=== PATIENT | male | born 1965 | race Caucasian/White ===

== ENCOUNTER 2020-08-30 01:10 | Emergency (ER) | payer BC, SELFPAY ==
[2020-08-30] MEDS ORDERED: MORPHINE SULFATE INJ 10 MG/ML VIAL ONE (01:17)
[2020-08-30] MEDS ORDERED: ONDANSETRON INJ 4 MG/2 ML VIAL IV ONE (01:18)
[2020-08-30] MEDS ORDERED: MORPHINE SULFATE INJ 10 MG/ML VIAL IV ONE (01:18)
--- NOTE | 2020-08-30 01:21 | ED.PDOC ---
History of Present Illness - General Time Seen by Provider: 08/30/20 01:16 Source: patient, RN notes reviewed, Vital Signs reviewed, EMS notes reviewed Additional Information: 54-year-old male patient, presents to the ER because of crushing chest pain, that began about an hour prior to presentation to the ER, patient has been quarantine at home because his was positive for Covid, patient does have a history of hypertension but is not compliant with his medication admit social drinker denies any drugs denies any cigarettes. Patient denies any fever but stated that once he started having the chest pain, he was having some trouble breathing, per EMS his pulse was 94%, he received aspirin and nitro by EMS with some improvement of symptoms no Previous history of coronary artery disease or previous heart attacks - History of Present Illness Timing/Duration: 1 hour Severity/Quality: severe Location: central Chest Pain Radiation: no radiation Prior Chest Pain/Cardiac Workup: no prior chest pain Improving Factors: medication Worsening Factors: nothing Nitro Today/Relief: 0.4 mg x 3 Aspirin Treatment Today: 325 mg x 1, provided by EMS Associated Symptoms: shortness of breath Allergies/Adverse Reactions: Allergies NO KNOWN ALLERGY Allergy (Unverified 01/16/14 09:05) Review of Systems - Review of Systems Constitutional: States: no symptoms reported EENTM: States: no symptoms reported Respiratory: States: short of breath Cardiology: States: chest pain Gastrointestinal/Abdominal: States: no symptoms reported Genitourinary: States: no symptoms reported Musculoskeletal: States: no symptoms reported Skin: States: no symptoms reported Neurological: States: no symptoms reported Endocrine: States: no symptoms reported Hematologic/Lymphatic: States: no symptoms reported Family Medical History - Family History Mother Family History: No Known Physical Exam - Physical Exam General Appearance: Obvious distress, Ill Appearing, Well Developed, Well Groomed Eyes, Ears, Nose, Throat Exam: PERRL/EOMI, normal ENT inspection Neck: non-tender, full range of motion, supple, normal inspection Respiratory: chest non-tender, lungs clear, normal breath sounds, no respiratory distress, no accessory muscle use Cardiovascular/Chest: normal peripheral pulses, regular rate, rhythm, no edema, no gallop, no JVD, no murmur Peripheral Pulses: radial,right: 2+, radial,left: 2+ Gastrointestinal/Abdominal: normal bowel sounds, non tender, soft, no organomegaly, no pulsatile mass Extremity: normal range of motion, non-tender, normal inspection, no pedal edema, no calf tenderness 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 Patient has not had any heart problems in the past, I ordered a Covid swab that was negative, EKG did not show ischemic changes 84, and no ST elevation and no ST depression t, patient BNP was negative because pat ient described the pain as excruciating pain that started abruptly and he did show evidence of elevated blood pressure which was aortic dissection CTA chest and abdomen did not show any pneumonia did not show any dissection I did not show any PE, patient blood pressure improved with morphine and labetalol and patient is no longer having any chest pain. I discussed all these findings with the patient and the plan will be is a second set of troponins remain negative then we will discharge him home given that his heart score is 3 will have him follow up cardiology as an outpatient, instructions were given to return to the ER immediately if chest pressure, nausea, vomiting, shortness of breath tingling sensation in the chest with radiation to her left arm right arm neck back or jaw sensation of fainting excessive sweating crushing chest pain reaction to the back increased work of breathing difficulty breathing breathing heart beating fast shortness of breath with minimal exertion or any other concern Departure - Departure Clinical Impression: Chest pain Disposition: Discharge to Home or Self Care Condition: Fair Instructions: Chest Pain (DC) Referrals: Apolinar Pandya MD [Active Staff] - 1-2 Weeks KINZA RASMUSSEN MD [Consulting Staff] - 1-2 Weeks KIKE TOWNSEND [Referring] - 1-2 Weeks Additional Instructions: return to the ER immediately if chest pressure, nausea, vomiting, shortness of breath tingling sensation in the chest with radiation to her left arm right arm neck back or jaw sensation of fainting excessive sweating crushing chest pain reaction to the back increased work of breathing difficulty breathing breathing heart beating fast shortness of breath with minimal exertion or any other concern 08/30/20 02:20
[2020-08-30] MEDS ORDERED: LABETALOL INJ 5 MG/ML VIAL IV ONE (01:22)
--- NOTE | 2020-08-30 01:45 | RAD ---
EXAM DESCRIPTION: Chest,1 View CLINICAL HISTORY: chest pain COMPARISON: Chest x-ray 03/12/2008. TECHNIQUE: Single view of the chest. FINDINGS: Lung volumes adequate. Cardiac silhouette is unchanged. No focal consolidation, pneumothorax, pleural effusion. IMPRESSION: No acute chest findings. Electronically signed by: Ted Murphy MD 08/30/2020 1:44 AM EQUALIZER OPERATOR
[2020-08-30 02:00] VITALS: TEMP 97.5
--- NOTE | 2020-08-30 02:08 | CT ---
EXAM DESCRIPTION: CTA Chest 08/30/2020 2:04 AM MACHINE HEEL SEAT LASTER CLINICAL HISTORY: 54 years, Male, dissection COMPARISON: None PROCEDURE: Multiple transaxial tomograms of the chest were obtained from the lung apices through the lung bases utilizing 2 mm slice thickness at 2 mm interval reconstruction after the administration of large bolus of IV contrast complete opacification of the thoracic aorta. Subsequent maximum intensity projection images were generated in the coronal and sagittal plane for review. An individualized dose optimization technique, Automated Exposure Control, was utilized for the performed procedure. FINDINGS: The lungs parenchyma demonstrate to be clear. No masses nodules and or consolidations are identified. The trachea mainstem bronchus demonstrate to be normal. There is no significant pericardial or pleural effusions. The thoracic aorta demonstrate to be within normal limits. There is no evidence for thoracic aortic dissection. There is no evidence for aneurysm. There is normal takeoff of the great vessels with normal branching pattern. No focal areas of significant stenosis. The heart is normal in size. No evidence for right ventricular strain. There is no significant mediastinal and/or hilar lymphadenopathy. The axillary regions demonstrate to be clear. The central arteries demonstrate no evidence for significant abnormalities. No major filling defects identified. The bone windows demonstrate to be within normal limits. Evaluation of the abdomen will be given in a separate report IMPRESSION: NO EVIDENCE FOR PULMONARY EMBOLUS AND/OR THORACIC AORTIC THORACIC DISSECTION. OTHERWISE UNREMARKABLE CT SCAN OF THE CHEST WITH CONTRAST. Electronically signed by: Jonathan Hernandez MD 08/30/2020 2:07 AM MACHINE HEEL SEAT LASTER
--- NOTE | 2020-08-30 02:13 | CT ---
EXAM DESCRIPTION: Abdomen/Pelvis w/Contrast 08/30/2020 2:07 AM DESKTOP SUPPORT MANAGER CLINICAL HISTORY: 54 years, Male, disssection abdominal pain. COMPARISON: None PROCEDURE: Contrast-enhanced images of the abdomen and pelvis were performed utilizing 2 mm slice thickness at 2 mm interval reconstruction from the lung bases to the ischial tuberosities after the administration of 100 IV contrast. The dosing was not provided for interpretation. In addition multiplanar reformats in the coronal and sagittal plane were obtained and reviewed. An individualized dose optimization technique, Automated Exposure Control, was utilized for the performed procedure. FINDINGS: Evaluation of the chest will be given in separate report. The liver demonstrate slight decreased attenuation perhaps ingesting mild fatty infiltration, gallbladder, pancreas, spleen and adrenal glands demonstrate to be unremarkable, no focal lesions are noted. The kidneys demonstrate normal uptake of contrast media. No hydronephrosis and/or stones were identified. There is a lower pole left renal cyst measuring approximately 1.3 cm on image 56 Grossly the unopacified stomach demonstrate to be distended with no gross abnormalities. Otherwise the stomach, small bowel and large bowel demonstrate to be within normal limits. Fecal residue and underdistention within the large bowel limits the evaluation. There is no evidence for bowel dilatation and/or free air. The appendix is normal. The urinary bladder demonstrate to be unremarkable. The prostate gland is normal. The aorta demonstrate minimal atheromatous plaque formation at the aortic bifurcation. There is no evidence for aneurysm/or significant dissection. There is no retroperitoneal lymphadenopathy. There is no evidence for ascites and/or significant abnormal fluid collections. The rest of the soft tissue and bony structures are within normal limits. IMPRESSION: QUESTIONABLE MILD FATTY FILTRATION OF THE LIVER. OTHERWISE UNREMARKABLE CT SCAN OF THE ABDOMEN AND PELVIS WITH CONTRAST. NO EVIDENCE FOR ACUTE INTRA-ABDOMINAL PROCESS. Electronically signed by: Jonathan Hernandez MD 08/30/2020 2:11 AM DESKTOP SUPPORT MANAGER
[2020-08-30 04:05] VITALS: BP 145/93; O2SAT 96
== END 2020-08-30 04:20 | disposition home or self-care (01) ==
LOC: ER 01:10
DX: R07.9 Chest pain, unspecified (principal); R06.02 Shortness of breath; I10 Essential (primary) hypertension; Z20.828 Contact with and (suspected) exposure to other viral communicable diseases; Z79.899 Other long term (current) drug therapy; Z91.14 Patient's other noncompliance with medication regimen
CPT/HCPCS: 36415; 71045; 71275; 74177; 80053; 82550; 83615; 83735; 83880; 84484; 85025; 85379; 85730; 86140; 87635; 93005; J2270; J2405

== ENCOUNTER 2020-11-17 17:02 | Emergency (ER) | payer SELFPAY ==
[2020-11-17] MEDS ORDERED: SODIUM CHLORIDE 0.9% (FLUSH) 10 ML SYG IV PRN (17:12)
[2020-11-17] MEDS ORDERED: SODIUM CHLORIDE 0.9% 1000ML 1,000 ML IVS ONE (17:12)
--- NOTE | 2020-11-17 17:12 | ED.PDOC ---
History of Present Illness - General Chief Complaint: Respiratory Problem Time Seen by Provider: 11/17/20 17:12 Source: patient, EMS, jail records Additional Information: Patient resides in a jail caring for ventilator patients. History of quadriplegia. Patient is under treatment for sepsis of undetermined organism. Patient's spinal injury occurred about 1 month ago. Patient transferred to the jail 4 days ago. - History of Present Illness Initial Comments: Nurse at jail found the patient cyanotic with a heart rate in the 40s and SaO2 in the 40s. He was on a ventilator at the time. She took the patient off the ventilator and bagged manually with improvement in heart rate and oxygen saturation. There was no loss of pulse and CPR was not started. Patient states that he has had a mild headache since yesterday. Patient is unable to speak but can answer questions by nodding his head. He denies fever, upper respiratory symptoms, cough, abdominal pain, vomiting. Timing/Duration: 1 hour Severity: severe Improving Factors: nothing Worsening Factors: nothing Associated Symptoms: other - Bradycardia and hypoxemia Allergies/Adverse Reactions: Allergies NO KNOWN ALLERGY Allergy (Verified 11/17/20 17:23) Review of Systems - Review of Systems Constitutional: States: no symptoms reported. Denies: fever EENTM: States: no symptoms reported, other - Redness of right eye, onset yesterday. Not painful. Respiratory: States: see HPI. Denies: cough, short of breath Cardiology: States: see HPI, other - Bradycardia Gastrointestinal/Abdominal: States: no symptoms reported. Denies: diarrhea, vomiting Genitourinary: States: no symptoms reported Skin: States: other - Bedsore reported on back Neurological: States: headache - Mild, onset yesterday, weakness - Quadriplegic Endocrine: States: other - History of diabetes Hematologic/Lymphatic: States: no symptoms reported Past Medical History (General) - Patient Medical History Hx Seizures: No Hx Stroke: No Hx Dementia: No Hx Asthma: No Hx of COPD: No Hx Cardiac Disorders: No Hx Congestive Heart Failure: No Hx Pacemaker: No Hx Hypertension: No Hx Thyroid Disease: No Hx Diabetes: No Hx Gastroesophageal Reflux: Yes Hx Renal Disease: No Hx Cancer: No Hx of HIV: No Hx Hepatitis C: No Hx MRSA: No - Vaccination History Hx Tetanus, Diphtheria Vaccination: No Hx Influenza Vaccination: No Hx Pneumococcal Vaccination: No - Social History Hx Tobacco Use: No Hx Chewing Tobacco Use: No Hx Alcohol Use: Yes - occasional Hx Substance Use: No Hx Substance Use Treatment: No Hx Depression: No Hx Physical Abuse: No Hx Emotional Abuse: No Hx Suspected Abuse: No Family Medical History - Family History Mother Family History: No Known Physical Exam - Physical Exam General Appearance: Alert, Comfortable, Other - Tracheostomy in place with ventilator Eye Exam: right other - Large subconjunctival hemorrhage lateral right eye. Extraocular motions are intact., bilateral conjunctivae pale - Minimal Ears, Nose, Throat: hearing grossly normal, normal ENT inspection, normal pharynx, other - Mucous membranes moist Neck: non-tender, other - Tracheostomy in place with surrounding erythema and purulent drainage. Respiratory: normal breath sounds Cardiovascular/Chest: regular rate, rhythm Gastrointestinal/Abdominal: normal bowel sounds, non tender, soft Rectal Exam: heme positive stool, other - Brown stool without melena or hematochezia. Extremity: other - No swelling or erythema noted Neurologic: motor weakness - Quadriplegic Skin Exam: warm/dry, mottled, other - On the left posterior buttock is a 5 to 6 cm bedsore which is deep into subcutaneous tissue. There is no surrounding erythema or purulent drainage., pallor - Mild Lymphatic: no adenopathy Progress - Progress Progress: 11/17/20 17:30 Patient specifically stated his headache was mild and declined to have a CAT scan performed. 11/17/20 17:38 Normal saline 1 L infusion 11/17/20 18:20 Cefazolin 2 g IV ordered. Review of old records at this facility shows hemoglobin on August 30, 2020 was 14. High D-dimer noted. CTA ordered. 11/17/20 19:03 Review of old records November 13, 2020 from [facility] in [place] showed hemoglobin 7.5 at that time. 11/17/20 20:41 CTA results noted. Zosyn 3.375 g ordered IV. Transfer process started. 11/17/20 20:43 Medical decision makin-year-old male quadriplegic patient on the ventilator brought in from senior care facility after brief episode of cyanosis and hypoxemia. CTA does not show pulmonary emboli but does show bilateral infiltrates consistent with pneumonia. Covid test is negative. Patient has a normal lactate, has been fully alert, and has had normal vital signs in the emergency department. He does not appear to be septic. Patient has a hemoglobin of 7 which is down from 7.5 four days ago and 14.0 three months ago. Stool is not melanotic but is occult positive for blood. Patient does not had any abdominal pain or vomiting. Patient also has a cutaneous infection around the tracheostomy site. He also has a bedsore in his left buttock. Due to significant anemia which appears to be relatively recent finding patient needs gastroenterology evaluation. Care of ventilator patients and gastroenterology services are not available at this facility. Transfer is sought to a facility offering a higher level care in the services.. 11/17/20 21:[address] Erickson, attending physician emergency department [facility] in [place]: Will accept the patient in transfer. 11/17/20 21:24 I discussed the patient's condition and disposition with his , Sonwilma Maria. She informed me that the patient was seen by supervisor packing at [facility] 6 days ago. - Results/Orders Results/Orders: Electrocardiogram: Paced rhythm, 60/min, no acute STT changes. EXAM DESCRIPTION: Chest,1 View 11/17/2020 5:44 PM CARDIOVASCULAR INVASIVE SPECIALIST CLINICAL HISTORY: 55 years, Male, Hypoxemia, sepsis COMPARISON: 08/30/2020 FINDINGS: Single view of the chest was obtained portable. Prior films were compared. There has been interval placement of a tracheostomy tube in good position. There has been interval placement of a dual-lead pacemaker in good position. Lung volume is decreased. Blunting of the lateral left CP angle and medial right CP angle suggest small bilateral pleural effusions with compressive atelectatic changes, greater left than right. Mild cardiomegaly. Thoracic aorta is unremarkable The rest of the soft tissue and bony structures demonstrate to be unremarkable. IMPRESSION: TRACHEOSTOMY TUBE AND DUAL-LEAD PACEMAKER IN PLACE. DECREASED LUNG VOLUME. SMALL BILATERAL PLEURAL EFFUSIONS WITH MINIMAL COMPRESSIVE ATELECTATIC CHANGES IN/OR INFILTRATES (LEFT GREATER THAN RIGHT). MILD CARDIOMEGALY Rapid nasopharyngeal swab test for COVID-19 negative. EXAM: CTA chest with contrast CLINICAL INDICATION: Abnormal D-dimer test, hypoxia COMPARISON: 08/30/2020. TECHNIQUE: CTA of the chest was performed using contiguous axial 2.5mm postcontrast sections through the chest including IV contrast with 3-D reconstructions. This exam was performed according to our departmental dose-optimization program, which includes automated exposure control, adjustment of the mA and/or kV according to patient size and/or use of iterative reconstruction technique. FINDINGS: This exam is limited and suboptimal for evaluation of pulmonary embolism due to poor contrast opacification of the pulmonary arteries. There is no large or obvious PE in the main, right, or left pulmonary arteries. Smaller vessels are not well evaluated. There is no evidence of aortic dissection. Small bilateral pleural effusions are noted. There is a small amount of ascites in the upper abdomen. The upper abdominal structures are otherwise unremarkable. Extensive consolidation with air bronchograms is seen in the bilateral lower lobes and the posterior upper lobes system with pneumonia. There is no pneumothorax. IMPRESSION: 1. Limited study for PE evaluation due to poor opacification of the pulmonary arteries. No large or obvious PE. Repeat study may be helpful. 2. Extensive consolidation/infiltrate in both lungs consistent with pneumonia. Small bilateral pleural effusions. 3. Small amount of ascites. Electronically signed by: Jesus Cai MD 11/17/2020 8:17 PM CARDIOVASCULAR INVASIVE SPECIALIST 11/17/20 17:12 Sodium Chloride 0.9% (Flush) [Saline Flush Syringe] 10 ml IV PRN PRN 11/17/20 17:13 EKG Stat Pulse Ox Stat Pulse Oximetry Assessment DAILY 11/17/20 17:15 SPUTUM CULTURE Stat WOUND CULTURE Stat 11/17/20 17:25 BLOOD CULTURE Stat 11/17/20 20:35 Piperacillin/Tazobactam [Zosyn] 3.375 gm Sodium Chloride 0.9% 100Ml [NS (NACL 0.9%) 100ml] 100 ml IVPB ONCE 11/17/20 20:43 URINE CULTURE W/COLONY COUNT Stat Laboratory Results - last 24 hr 11/17/20 11/17/20 11/17/20 17:25 17:25 17:25 WBC 2.3 L* RBC 2.30 L Hgb 7.0 L* Hct 20.7 L MCV 89.9 MCH 30.2 MCHC 33.6 RDW 17.6 H Plt Count 118 L MPV 8.9 Absolute Neuts (auto) Not Reportable Absolute Lymphs (auto) Not Reportable Absolute Monos (auto) Not Reportable Absolute Eos (auto) Not Reportable Neutrophils % Not Reportable Neutrophils % (Manual) 49.0 Lymphocytes % Not Reportable Lymphocytes % (Manual) 42.0 Monocytes % Not Reportable Monocytes % (Manual) 8.0 Eosinophils % Not Reportable Basophils % Not Reportable Eosinophils 1.0 Platelet Estimate Decreased PT 11.0 H INR 1.11 PTT (SP) 21.5 L D-Dimer, Quantitative 4100.0 H* pCO2 pO2 HCO3 ABG pH ABG O2 Saturation ABG Base Excess ABG Deoxyhemoglobin Oxyhemoglobin % Carboxyhemoglobin % Methemoglobin % Sat Calc Total Hemoglobin Sodium 137 Potassium 3.8 Chloride 105 Carbon Dioxide 24 Anion Gap 11.8 L BUN 20 H Creatinine 0.43 L BUN/Creatinine Ratio 46.5 H Random Glucose 140 H Serum Osmolality 278.7 Lactic Acid Calcium 7.4 L Total Bilirubin 0.5 AST 33 ALT 11 Alkaline Phosphatase 68 Creatine Kinase 59 CK-MB (CK-2) 5.8 H* CK-MB (CK-2) % Not Reportable Troponin I 0.05 B-Natriuretic Peptide Serum Total Protein 4.9 L Albumin 2.0 L Globulin 2.9 Albumin/Globulin Ratio 0.7 L Urine Color Urine Appearance Urine pH Ur Specific [place] Urine Protein Urine Glucose (UA) Urine Ketones Urine Blood Urine Nitrite Urine Bilirubin Urine Urobilinogen Ur Leukocyte Esterase Urine RBC Urine WBC Ur Epithelial Cells Amorphous Sediment Urine Bacteria Stool Occult Blood Patient ABO/Rh Antibody Screen 11/17/20 11/17/20 11/17/20 17:25 18:06 18:19 WBC RBC Hgb Hct MCV MCH MCHC RDW Plt Count MPV Absolute Neuts (auto) Absolute Lymphs (auto) Absolute Monos (auto) Absolute Eos (auto) Neutrophils % Neutrophils % (Manual) Lymphocytes % Lymphocytes % (Manual) Monocytes % Monocytes % (Manual) Eosinophils % Basophils % Eosinophils Platelet Estimate PT INR PTT (SP) D-Dimer, Quantitative pCO2 33 L pO2 78 L HCO3 26.8 ABG pH 7.516 H ABG O2 Saturation 97.5 ABG Base Excess 3.8 ABG Deoxyhemoglobin 2.5 Oxyhemoglobin % 95.7 Carboxyhemoglobin % 1.2 Methemoglobin % Sat 0.6 Calc Total Hemoglobin 8.1 L Sodium Potassium Chloride Carbon Dioxide Anion Gap BUN Creatinine BUN/Creatinine Ratio Random Glucose Serum Osmolality Lactic Acid 1.9 Calcium Total Bilirubin AST ALT Alkaline Phosphatase Creatine Kinase CK-MB (CK-2) CK-MB (CK-2) % Troponin I B-Natriuretic Peptide Serum Total Protein Albumin Globulin Albumin/Globulin Ratio Urine Color Urine Appearance Urine pH Ur Specific [place] Urine Protein Urine Glucose (UA) Urine Ketones Urine Blood Urine Nitrite Urine Bilirubin Urine Urobilinogen Ur Leukocyte Esterase Urine RBC Urine WBC Ur Epithelial Cells Amorphous Sediment Urine Bacteria Stool Occult Blood Positive H Patient ABO/Rh Antibody Screen 11/17/20 11/17/20 11/17/20 19:04 19:05 19:12 WBC RBC Hgb Hct MCV MCH MCHC RDW Plt Count MPV Absolute Neuts (auto) Absolute Lymphs (auto) Absolute Monos (auto) Absolute Eos (auto) Neutrophils % Neutrophils % (Manual) Lymphocytes % Lymphocytes % (Manual) Monocytes % Monocytes % (Manual) Eosinophils % Basophils % Eosinophils Platelet Estimate PT INR PTT (SP) D-Dimer, Quantitative pCO2 pO2 HCO3 ABG pH ABG O2 Saturation ABG Base Excess ABG Deoxyhemoglobin Oxyhemoglobin % Carboxyhemoglobin % Methemoglobin % Sat Calc Total Hemoglobin Sodium Potassium Chloride Carbon Dioxide Anion Gap BUN Creatinine BUN/Creatinine Ratio Random Glucose Serum Osmolality Lactic Acid 1.9 Calcium Total Bilirubin AST ALT Alkaline Phosphatase Creatine Kinase CK-MB (CK-2) CK-MB (CK-2) % Troponin I B-Natriuretic Peptide 149.0 H Serum Total Protein Albumin Globulin Albumin/Globulin Ratio Urine Color Urine Appearance Urine pH Ur Specific [place] Urine Protein Urine Glucose (UA) Urine Ketones Urine Blood Urine Nitrite Urine Bilirubin Urine Urobilinogen Ur Leukocyte Esterase Urine RBC Urine WBC Ur Epithelial Cells Amorphous Sediment Urine Bacteria Stool Occult Blood Patient ABO/Rh O POSITIVE Antibody Screen Negative 11/17/20 19:16 WBC RBC Hgb Hct MCV MCH MCHC RDW Plt Count MPV Absolute Neuts (auto) Absolute Lymphs (auto) Absolute Monos (auto) Absolute Eos (auto) Neutrophils % Neutrophils % (Manual) Lymphocytes % Lymphocytes % (Manual) Monocytes % Monocytes % (Manual) Eosinophils % Basophils % Eosinophils Platelet Estimate PT INR PTT (SP) D-Dimer, Quantitative pCO2 pO2 HCO3 ABG pH ABG O2 Saturation ABG Base Excess ABG Deoxyhemoglobin Oxyhemoglobin % Carboxyhemoglobin % Methemoglobin % Sat Calc Total Hemoglobin Sodium Potassium Chloride Carbon Dioxide Anion Gap BUN Creatinine BUN/Creatinine Ratio Random Glucose Serum Osmolality Lactic Acid Calcium Total Bilirubin AST ALT Alkaline Phosphatase Creatine Kinase CK-MB (CK-2) CK-MB (CK-2) % Troponin I B-Natriuretic Peptide Serum Total Protein Albumin Globulin Albumin/Globulin Ratio Urine Color Yellow Urine Appearance Clear Urine pH 5.5 Ur Specific [place] 1.015 Urine Protein 100 H Urine Glucose (UA) 100 H Urine Ketones Negative Urine Blood Large H Urine Nitrite Negative Urine Bilirubin Negative Urine Urobilinogen 1.0 Ur Leukocyte Esterase Negative Urine RBC 5-10 H Urine WBC 0 Ur Epithelial Cells 0 Amorphous Sediment 2+ Urine Bacteria 0 Stool Occult Blood Patient ABO/Rh Antibody Screen Vital Signs - 24 hr 11/17/20 11/17/20 11/17/20 17:03 17:05 17:09 Temperature 98 F Pulse Rate [ 60 60 Pulse ox] Respiratory 16 16 Rate Respiratory 16 Rate [Pressure Control Data] Blood Pressure 102/57 [R arm] O2 Sat by Pulse 97 96 Oximetry 11/17/20 11/17/20 11/17/20 18:41 19:02 20:00 Temperature Pulse Rate [ 64 60 Pulse ox] Respiratory 20 16 Rate Respiratory 16 Rate [Pressure Control Data] Blood Pressure 127/70 104/60 [R arm] O2 Sat by Pulse 99 94 L Oximetry 11/17/20 20:10 Temperature Pulse Rate [ Pulse ox] Respiratory Rate Respiratory 16 Rate [Pressure Control Data] Blood Pressure [R arm] O2 Sat by Pulse Oximetry Departure - Departure Clinical Impression: Hypoxemia, resolved, Pneumonia, bilateral, Gastrointestinal bleeding, Anemia secondary to blood loss, Cutaneous infection of tracheostomy site, Quadriplegia Disposition: Transfer to Hospital Departure Forms: ED Discharge - Pt. Copy, Patient Portal Self Enrollment Referrals: ASHLEY ORTEGA [Primary Care Provider] - 1-2 Weeks Transfer to Outside Facility - Transfer Information Decision to Transfer Date: 11/17/20 Decision to Transfer Time: 20:40 Reason for Transfer: specialized care not available Accepting Facility: [facility]
--- NOTE | 2020-11-17 17:47 | RAD ---
EXAM DESCRIPTION: Chest,1 View 11/17/2020 5:44 PM CREDIT INTERN CLINICAL HISTORY: 55 years, Male, Hypoxemia, sepsis COMPARISON: 08/30/2020 FINDINGS: Single view of the chest was obtained portable. Prior films were compared. There has been interval placement of a tracheostomy tube in good position. There has been interval placement of a dual-lead pacemaker in good position. Lung volume is decreased. Blunting of the lateral left CP angle and medial right CP angle suggest small bilateral pleural effusions with compressive atelectatic changes, greater left than right. Mild cardiomegaly. Thoracic aorta is unremarkable The rest of the soft tissue and bony structures demonstrate to be unremarkable. IMPRESSION: TRACHEOSTOMY TUBE AND DUAL-LEAD PACEMAKER IN PLACE. DECREASED LUNG VOLUME. SMALL BILATERAL PLEURAL EFFUSIONS WITH MINIMAL COMPRESSIVE ATELECTATIC CHANGES IN/OR INFILTRATES (LEFT GREATER THAN RIGHT). MILD CARDIOMEGALY Electronically signed by: Jonathan Hernandez MD 11/17/2020 5:45 PM CREDIT INTERN
[2020-11-17] MEDS ORDERED: ceFAZolin SODIUM 2 GM in SODIUM CHLORIDE 0.9% 100ML 100 ML IVPB ONE (18:14)
--- NOTE | 2020-11-17 20:18 | CT ---
EXAM: CTA chest with contrast CLINICAL INDICATION: Abnormal D-dimer test, hypoxia COMPARISON: 08/30/2020. TECHNIQUE: CTA of the chest was performed using contiguous axial 2.5mm postcontrast sections through the chest including IV contrast with 3-D reconstructions. This exam was performed according to our departmental dose-optimization program, which includes automated exposure control, adjustment of the mA and/or kV according to patient size and/or use of iterative reconstruction technique. FINDINGS: This exam is limited and suboptimal for evaluation of pulmonary embolism due to poor contrast opacification of the pulmonary arteries. There is no large or obvious PE in the main, right, or left pulmonary arteries. Smaller vessels are not well evaluated. There is no evidence of aortic dissection. Small bilateral pleural effusions are noted. There is a small amount of ascites in the upper abdomen. The upper abdominal structures are otherwise unremarkable. Extensive consolidation with air bronchograms is seen in the bilateral lower lobes and the posterior upper lobes system with pneumonia. There is no pneumothorax. IMPRESSION: 1. Limited study for PE evaluation due to poor opacification of the pulmonary arteries. No large or obvious PE. Repeat study may be helpful. 2. Extensive consolidation/infiltrate in both lungs consistent with pneumonia. Small bilateral pleural effusions. 3. Small amount of ascites. Electronically signed by: Jesus Cai MD 11/17/2020 8:17 PM OCCUPANCY SPECIALIST
[2020-11-17] MEDS ORDERED: PIPERACILLIN/TAZOBACTAM 3.375 GM in SODIUM CHLORIDE 0.9% 100ML 100 ML IVPB ONE (20:35)
[2020-11-17 22:31] VITALS: BP 128/70; TEMP 97.2; O2SAT 100
== END 2020-11-17 22:47 | disposition short-term general hospital (02) ==
LOC: ER 17:02
DX: J18.9 Pneumonia, unspecified organism (principal); R09.02 Hypoxemia; J95.02 Infection of tracheostomy stoma; L08.9 Local infection of the skin and subcutaneous tissue, unspecified; K92.2 Gastrointestinal hemorrhage, unspecified; D50.0 Iron deficiency anemia secondary to blood loss (chronic); G82.50 Quadriplegia, unspecified; R51.9 Headache, unspecified; H11.31 Conjunctival hemorrhage, right eye; L89.329 Pressure ulcer of left buttock, unspecified stage; R00.1 Bradycardia, unspecified; E11.9 Type 2 diabetes mellitus without complications; Z20.822 Contact with and (suspected) exposure to COVID-19; Z99.11 Dependence on respirator [ventilator] status
CPT/HCPCS: 36415; 36600; 71045; 71275; 80053; 81001; 82270; 82550; 82553; 82803; 82805; 83605; 83880; 84484; 85025; 85379; 85610; 85730; 86850; 86900; 86901; 87040; 87070; 87086; 87635; 93005; 94002; 94760; J0690; J2543; J7050

== ENCOUNTER 2020-12-01 08:26 | Emergency (ER) | payer SELFPAY ==
[2020-12-01] MEDS ORDERED: SODIUM CHLORIDE 0.9% 1000ML 1,000 ML IVS ONE (08:53)
[2020-12-01] MEDS ORDERED: SODIUM CHLORIDE 0.9% (FLUSH) 10 ML SYG IV PRN ×2 (08:53→11:22)
--- NOTE | 2020-12-01 09:13 | ED.PDOC ---
History of Present Illness - General Chief Complaint: Blood Pressure Problem Stated Complaint: Low BP Time Seen by Provider: 12/01/20 08:40 Source: patient, RN notes reviewed, Vital Signs reviewed Exam Limitations: other - Patient is a vented patient and therefore it is difficult to obtain a clear history. - History of Present Illness Initial Comments: Patient is a 55-year-old quadriplegic white male who recently became quadriplegic. He arrives to the ED today is stating that he is not feeling himself. Patient states that he just feels sick. He denies any pain. Though l ater he tells us he has a mild headache. On arrival patient's blood pressure was 100/47. Patient cannot tell me how long he has not been feeling well. He cannot tell me anything that makes him feel better or worse. Timing/Duration: unsure, constant Severity: moderate Improving Factors: nothing Worsening Factors: nothing Associated Symptoms: denies symptoms Allergies/Adverse Reactions: Allergies NO KNOWN ALLERGY Allergy (Verified 12/01/20 08:52) Home Medications: Ambulatory Orders Acetaminophen [Acetaminophen ER] 650 mg PEG Q6H PRN 12/01/20 Acetylcystein 20 % [Mucomyst] 2 ml INH BID 12/01/20 Albuterol Sulfate 2.5 mg INH BID 12/01/20 Apixaban [Eliquis] 5 mg PO BID #30 tab 12/01/20 Artificial Saliva [Biotene Moisturizing Mout] 2 spr MT BID PRN 12/01/20 Ascorbic Acid [Vitamin C 500 mg] 1 tab PEG DAILY 12/01/20 Cefazolin Sodium 2 gm IV Q8H 12/01/20 Cefdinir 300 mg PO BID #120 ml 12/01/20 Cholecalciferol [Vitamin D3] 200 unit PEG DAILY 12/01/20 Clonazepam [Clonazepam Odt] 0.25 mg PEG BID PRN 12/01/20 Escitalopram [Lexapro] 10 mg PEG DAILY 12/01/20 Glucagon (Rdna) [Glucagon Emergency Kit Fo] 1 mg IJ ONCE PRN 12/01/20 Human Insulin Aspart [Novolog] See Protocol SUBCU Q6H PRN 12/01/20 Hydrochlorothiazide 25 mg PEG DAILY 12/01/20 Ibuprofen [Motrin] 200 mg PEG Q8H PRN 12/01/20 Lisinopril 20 mg PEG DAILY 12/01/20 Melatonin 5 mg PEG DAILY 12/01/20 Metoprolol Succinate [Toprol Xl] 25 mg PO DAILY #15 tab 12/01/20 Midodrine HCl 10 mg PEG DAILY 12/01/20 Mirtazapine 7.5 mg PEG BEDTIME 12/01/20 Multiple Minerals W/ Vitamins [Multi [place] Minerals] 1 tab PEG DAILY 12/01/20 Pantoprazole Sodium [Protonix] 40 mg PEG BID 12/01/20 Review of Systems - Review of Systems Constitutional: States: see HPI, malaise, weakness. Denies: chills, fever EENTM: States: no symptoms reported. Denies: eye pain, blurred vision, double vision, throat pain Respiratory: States: no symptoms reported. Denies: cough, short of breath, stridor, wheezing Cardiology: States: no symptoms reported. Denies: chest pain, palpitations, syncope Gastrointestinal/Abdominal: States: no symptoms reported. Denies: abdominal pain, constipation, diarrhea, nausea, vomiting Genitourinary: States: no symptoms reported. Denies: dysuria, frequency Musculoskeletal: States: no symptoms reported. Denies: back pain, joint pain, joint swelling Skin: States: no symptoms reported. Denies: change in color, rash Neurological: States: see HPI, headache, weakness - Generalized. Denies: tingling, tremors Endocrine: States: no symptoms reported. Denies: increased hunger, increased thirst, increased urine Hematologic/Lymphatic: States: no symptoms reported. Denies: blood clots, easy bleeding All other Systems: No Change from Baseline Past Medical History (General) - Patient Medical History Hx Seizures: No Hx Stroke: No Hx Dementia: No Hx Asthma: No Hx of COPD: No Hx Cardiac Disorders: No Hx Congestive Heart Failure: No Hx Pacemaker: No Hx Hypertension: Yes Hx Thyroid Disease: No Hx Diabetes: Yes Hx Gastroesophageal Reflux: Yes Hx Renal Disease: No Hx Cancer: No Hx of HIV: No Hx Hepatitis C: No Hx MRSA: No - Vaccination History Hx Tetanus, Diphtheria Vaccination: No Hx Influenza Vaccination: No Hx Pneumococcal Vaccination: No - Social History Hx Tobacco Use: No Hx Chewing Tobacco Use: No Hx Alcohol Use: Yes - occasional Hx Substance Use: No Hx Substance Use Treatment: No Hx Depression: Yes Hx Physical Abuse: No Hx Emotional Abuse: No Hx Suspected Abuse: No - Activities of Daily Living Intermediate/Assisted Living (if applicable):: [facility] - Female History Patient is a Female of Child Bearing Age (10 -59 yrs old): No Patient : No Family Medical History - Family History Mother Family History: No Known Physical Exam - Physical Exam General Appearance: Alert, Anxious, Frail, Ill Appearing, Obese, Unkempt, Well Developed, Well Nourished Eye Exam: bilateral normal Ears, Nose, Throat: hearing grossly normal, normal ENT inspection, normal pharynx - Except for dry mucous membranes. Neck: non-tender, supple, other - Tracheostomy is in place. There is no drainage or redness around the stoma. Respiratory: chest non-tender, lungs clear, normal breath sounds, no respiratory distress Cardiovascular/Chest: normal peripheral pulses, regular rate, rhythm, no edema, no gallop, no JVD, no murmur Peripheral Pulses: radial,right: 2+, radial,left: 2+ Gastrointestinal/Abdominal: normal bowel sounds, non tender, soft Back Exam: normal inspection, no CVA tenderness, no vertebral tenderness Extremity: slow capillary refill, other - Patient is quadriplegic, he is pale in color. Cap refill is approximately 4 seconds. Neurologic: alert, normal mood/affect, oriented x 3 Skin Exam: warm/dry, pallor Lymphatic: no adenopathy Progress - Progress Progress: Differential diagnosis: Sepsis, acute VA, dehydration, UTI among others. 12/01/20 14:16 On arrival here patient with hypotension. Patient is also complaining of a mild headache. Work-up here shows dehydration and UTI. Patient is on a first generation cephalosporin for his previous episode of sepsis. I have added Rocephin IV to cover the UTI. His blood pressures have improved after 1 L fluid. Lactic acid is 1.7, which is in the normal range and therefore sepsis unlikely. Heart rate is come down with a touch of Cardizem. I did discuss this patient's care with the on-call washateria attendant, Dr. Stovall, who covers for his washateria attendant and he recommends starting the patient on metoprolol and anticoagulating him since he is in A. fib with RVR. Plan on discharge back to the [place] [facility] with a prescription for Eliquis and metoprolol. I discussed this plan of care with the and she voices understanding and agreement as well as the patient. Isac Bernabe M.D. #[id number] - Results/Orders Results/Orders: EKG performed 01 December 2020 at 0844 hrs.: Patient has demand pacemaker. Currently he is with atrial fibrillation with RVR with premature conducted complexes, no ST or T wave elevation or depression indicating acute ischemia, abnormal EKG. No comparison EKG available at this time EXAM DESCRIPTION: Chest,1 View CLINICAL HISTORY: tachycardia COMPARISON: November 17, 2020. FINDINGS: Tracheostomy tube remains in place without apparent complication. Multilead cardiac device remains in place in the left anterior chest wall, left-sided PICC line remains in place unchanged from the prior exam. Stable cardiomegaly. Atelectasis versus consolidation in the lung bases, stable. Pleural effusions seen on recent chest CT are not radiographically apparent. IMPRESSION: No new abnormality or significant change from November 17, 2020. Electronically signed by: Fabian Humphrey MD 12/01/2020 1:33 PM [employer] 12/01/20 08:53 Sodium Chloride 0.9% (Flush) [Saline Flush Syringe] 10 ml IV PRN PRN 12/01/20 09:00 EKG STAT 12/01/20 10:21 URINE CULTURE W/COLONY COUNT Stat 12/01/20 10:41 BLOOD CULTURE Stat 12/01/20 11:22 Sodium Chloride 0.9% (Flush) [Saline Flush Syringe] 3 ml IV PRN PRN 12/02/20 09:00 Pulse Ox Daily Laboratory Results - last 24 hr 12/01/20 12/01/20 12/01/20 09:24 10:15 10:21 WBC Cancelled RBC Cancelled Hgb Cancelled Hct Cancelled MCV Cancelled MCH Cancelled MCHC Cancelled RDW Cancelled Plt Count Cancelled MPV Cancelled Absolute Neuts (auto) Cancelled Absolute Lymphs (auto) Cancelled Absolute Monos (auto) Cancelled Absolute Eos (auto) Cancelled Absolute Basos (auto) Cancelled Neutrophils % Cancelled Lymphocytes % Cancelled Monocytes % Cancelled Eosinophils % Cancelled Basophils % Cancelled Differential Comment Cancelled RBC Morphology Cancelled PT INR PTT (SP) pCO2 37 pO2 75 L HCO3 33.7 ABG pH 7.540 H ABG O2 Saturation 97.4 ABG Base Excess 10.3 ABG Deoxyhemoglobin 2.6 Oxyhemoglobin % 95.5 Carboxyhemoglobin % 1.0 Methemoglobin % Sat 0.9 Calc Total Hemoglobin 7.8 L Sodium Potassium Chloride Carbon Dioxide Anion Gap BUN Creatinine BUN/Creatinine Ratio Random Glucose Serum Osmolality Lactic Acid Calcium Magnesium Total Bilirubin Direct Bilirubin Indirect Bilirubin AST ALT Alkaline Phosphatase Creatine Kinase CK-MB (CK-2) CK-MB (CK-2) % Troponin I B-Natriuretic Peptide Serum Total Protein Albumin Lipase Urine Color Yellow Urine Appearance Cloudy Urine pH 5.5 Ur Specific [place] 1.015 Urine Protein 100 H Urine Glucose (UA) Negative Urine Ketones 15 H Urine Blood Moderate H Urine Nitrite Negative Urine Bilirubin Negative Urine Urobilinogen 0.2 Ur Leukocyte Esterase Large H Urine RBC 5-10 H Urine WBC 5-10 H Ur Epithelial Cells 0 Urine Bacteria 2+ H 12/01/20 12/01/20 12/01/20 10:41 10:50 10:50 WBC 10.2 RBC 2.83 L Hgb 8.5 L Hct 25.2 L MCV 89.2 MCH 30.0 MCHC 33.6 RDW 16.8 H Plt Count 307 MPV 8.2 Absolute Neuts (auto) 7.50 H Absolute Lymphs (auto) 1.70 Absolute Monos (auto) 0.90 H Absolute Eos (auto) 0.00 Absolute Basos (auto) 0.10 Neutrophils % 72.9 Lymphocytes % 16.8 L Monocytes % 9.2 H Eosinophils % 0.1 L Basophils % 1.0 Differential Comment RBC Morphology PT INR PTT (SP) pCO2 pO2 HCO3 ABG pH ABG O2 Saturation ABG Base Excess ABG Deoxyhemoglobin Oxyhemoglobin % Carboxyhemoglobin % Methemoglobin % Sat Calc Total Hemoglobin Sodium 138 Potassium 4.0 Chloride 93 L Carbon Dioxide 34 H Anion Gap 15.0 BUN 30 H Creatinine 0.54 L BUN/Creatinine Ratio 55.6 H Random Glucose 140 H Serum Osmolality 284.2 Lactic Acid Calcium 8.3 L Magnesium 1.7 L Total Bilirubin 0.4 Direct Bilirubin 0.1 Indirect Bilirubin 0.3 AST 20 ALT 8 L Alkaline Phosphatase 74 Creatine Kinase 43 CK-MB (CK-2) 4.7 H* CK-MB (CK-2) % Not Reportable Troponin I 0.03 B-Natriuretic Peptide 914.0 H* Serum Total Protein 5.7 L Albumin 2.2 L Lipase 30 Urine Color Urine Appearance Urine pH Ur Specific [place] Urine Protein Urine Glucose (UA) Urine Ketones Urine Blood Urine Nitrite Urine Bilirubin Urine Urobilinogen Ur Leukocyte Esterase Urine RBC Urine WBC Ur Epithelial Cells Urine Bacteria 12/01/20 12/01/20 12/01/20 10:55 11:23 11:23 WBC RBC Hgb Hct MCV MCH MCHC RDW Plt Count MPV Absolute Neuts (auto) Absolute Lymphs (auto) Absolute Monos (auto) Absolute Eos (auto) Absolute Basos (auto) Neutrophils % Lymphocytes % Monocytes % Eosinophils % Basophils % Differential Comment RBC Morphology PT 10.4 INR 1.05 PTT (SP) 23.4 pCO2 pO2 HCO3 ABG pH ABG O2 Saturation ABG Base Excess ABG Deoxyhemoglobin Oxyhemoglobin % Carboxyhemoglobin % Methemoglobin % Sat Calc Total Hemoglobin Sodium Potassium Chloride Carbon Dioxide Anion Gap BUN Creatinine BUN/Creatinine Ratio Random Glucose Serum Osmolality Lactic Acid 1.7 Calcium Magnesium Total Bilirubin Direct Bilirubin Indirect Bilirubin AST ALT Alkaline Phosphatase Creatine Kinase CK-MB (CK-2) CK-MB (CK-2) % Troponin I Cancelled B-Natriuretic Peptide Serum Total Protein Albumin Lipase Urine Color Urine Appearance Urine pH Ur Specific [place] Urine Protein Urine Glucose (UA) Urine Ketones Urine Blood Urine Nitrite Urine Bilirubin Urine Urobilinogen Ur Leukocyte Esterase Urine RBC Urine WBC Ur Epithelial Cells Urine Bacteria Vital Signs 12/01/20 12/01/20 12/01/20 08:26 08:30 09:00 Temperature 95.9 F L Pulse Rate [ 63 63 123 H Pulse ox] Respiratory 22 22 Rate Respiratory 22 Rate [Volume Control Data] Blood Pressure 100/47 75/49 [R leg] O2 Sat by Pulse 95 99 Oximetry 12/01/20 12/01/20 12/01/20 09:02 10:00 11:00 Temperature 95.8 F L Pulse Rate [ 102 H 126 H Pulse ox] Respiratory Rate Respiratory 22 Rate [Volume Control Data] Blood Pressure 98/60 130/72 [R leg] O2 Sat by Pulse 100 100 Oximetry 12/01/20 12/01/20 11:37 12:00 Temperature Pulse Rate [ 87 Pulse ox] Respiratory 18 Rate Respiratory 20 Rate [Volume Control Data] Blood Pressure 110/57 [R leg] O2 Sat by Pulse 100 100 Oximetry Departure - Departure Clinical Impression: Dehydration, Atrial fibrillation with rapid ventricular response UTI (urinary tract infection) Qualifiers: Urinary tract infection type: catheter-associated UTI Indwelling urinary catheter type: indwelling urethral catheter Encounter type: initial encounter Qualified Code(s): T83.511A - Infection and inflammatory reaction due to indwelling urethral catheter, initial encounter; N39.0 - Urinary tract infection, site not specified Hypotension Qualifiers: Hypotension type: unspecified hypotension type Qualified Code(s): I95.9 - Hypotension, unspecified Time of Disposition: 14:32 Disposition: Discharge to SNF Condition: Fair Departure Forms: ED Discharge - Pt. Copy, Patient Portal Self Enrollment Instructions: DI for High Blood Pressure, Urinary Tract Infection, Adult (DC), How to Prevent Catheter Associated Urinary Tract Infections, Dehydration, Adult (DC) Diet: resume usual diet Activity: as per physical therapy Referrals: ASHLEY ORTEGA [Primary Care Provider] - 1-2 Days Prescriptions: Cefdinir 300 mg PO BID #120 ml Apixaban [Eliquis] 5 mg PO BID #30 tab Metoprolol Succinate [Toprol Xl] 25 mg PO DAILY #15 tab Home Medications: Ambulatory Orders Acetaminophen [Acetaminophen ER] 650 mg PEG Q6H PRN 12/01/20 Acetylcystein 20 % [Mucomyst] 2 ml INH BID 12/01/20 Albuterol Sulfate 2.5 mg INH BID 12/01/20 Apixaban [Eliquis] 5 mg PO BID #30 tab 12/01/20 Artificial Saliva [Biotene Moisturizing Mout] 2 spr MT BID PRN 12/01/20 Ascorbic Acid [Vitamin C 500 mg] 1 tab PEG DAILY 12/01/20 Cefazolin Sodium 2 gm IV Q8H 12/01/20 Cefdinir 300 mg PO BID #120 ml 12/01/20 Cholecalciferol [Vitamin D3] 200 unit PEG DAILY 12/01/20 Clonazepam [Clonazepam Odt] 0.25 mg PEG BID PRN 12/01/20 Escitalopram [Lexapro] 10 mg PEG DAILY 12/01/20 Glucagon (Rdna) [Glucagon Emergency Kit Fo] 1 mg IJ ONCE PRN 12/01/20 Human Insulin Aspart [Novolog] See Protocol SUBCU Q6H PRN 12/01/20 Hydrochlorothiazide 25 mg PEG DAILY 12/01/20 Ibuprofen [Motrin] 200 mg PEG Q8H PRN 12/01/20 Lisinopril 20 mg PEG DAILY 12/01/20 Melatonin 5 mg PEG DAILY 12/01/20 Metoprolol Succinate [Toprol Xl] 25 mg PO DAILY #15 tab 12/01/20 Midodrine HCl 10 mg PEG DAILY 12/01/20 Mirtazapine 7.5 mg PEG BEDTIME 12/01/20 Multiple Minerals W/ Vitamins [Multi [place] Minerals] 1 tab PEG DAILY 12/01/20 Pantoprazole Sodium [Protonix] 40 mg PEG BID 12/01/20 Additional Instructions: Pt to follow up with his [place] attendant in the next 1-2 days.
[2020-12-01] MEDS ORDERED: ACETAMINOPHEN 500 MG TAB GT ONE (09:31)
[2020-12-01 11:29] VITALS: TEMP 95.8
[2020-12-01] MEDS ORDERED: cefTRIAXone SODIUM 2 GM in SODIUM CHL 0.9% 100ML MINI-BAG 100 ML IVPB ONE (11:45)
[2020-12-01] MEDS ORDERED: METOPROLOL TARTRATE INJ 5 MG/5 ML VIAL IV ONE (11:55)
[2020-12-01] MEDS ORDERED: ENOXAPARIN SODIUM 100 MG/ML SYG SUBCU ONE (11:55)
[2020-12-01] MEDS ORDERED: ENOXAPARIN SODIUM 60 MG/0.6 ML SYG SUBCU ONE (12:01)
--- NOTE | 2020-12-01 13:35 | RAD ---
EXAM DESCRIPTION: Chest,1 View CLINICAL HISTORY: tachycardia COMPARISON: November 17, 2020. FINDINGS: Tracheostomy tube remains in place without apparent complication. Multilead cardiac device remains in place in the left anterior chest wall, left-sided PICC line remains in place unchanged from the prior exam. Stable cardiomegaly. Atelectasis versus consolidation in the lung bases, stable. Pleural effusions seen on recent chest CT are not radiographically apparent. IMPRESSION: No new abnormality or significant change from November 17, 2020. Electronically signed by: Fabian Humphrey MD 12/01/2020 1:33 PM [facility]
[2020-12-01] MEDS ORDERED: MORPHINE SULFATE INJ 10 MG/ML VIAL IV ONE (13:41)
[2020-12-01] MEDS ORDERED: APIXABAN 5 MG TAB PO ONE (14:39)
[2020-12-01] MEDS ORDERED: METOPROLOL SUCCINATE XL 25 MG TAB PO ONE (14:50)
--- NOTE | 2020-12-01 15:52 | CT ---
EXAM DESCRIPTION: Head CLINICAL HISTORY: 55 years, Male, spouse reports facial drooping COMPARISON: None TECHNIQUE: Head CT was performed without IV contrast. This exam was performed according to our departmental dose-optimization program, which includes automated exposure control, adjustment of the mA and/or kV according to patient size and/or use of iterative reconstruction technique. FINDINGS: No acute intracranial hemorrhage. No midline shift. The ventricles are not dilated. Mild chronic ischemic changes in the periventricular white matter without cortical infarct or intracranial mass. Smooth dilation of the central canal of the spine at the level of the brainstem inferior to the fourth ventricle extending into the cervical spine out of the [id number] of this exam. The internal auditory canals are bilaterally symmetric and nondilated. Visualized paranasal sinuses and orbits are unremarkable. No calvarial fracture. IMPRESSION: Chronic ischemic changes without acute intracranial abnormality. 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 MRI should be considered for further evaluation. Electronically signed by: Fabian Humphrey MD 12/01/2020 3:51 PM [facility]
[2020-12-01] MEDS ORDERED: NOREPINEPHRINE BITARTRATE 4 MG/4 ML VIAL IVPB ONE ×2 (16:23→16:24)
[2020-12-01] MEDS ORDERED: DEXTROSE 5% 250ML 250 ML ONE (16:24)
[2020-12-01 17:19] VITALS: BP 156/105; O2SAT 100
== END 2020-12-01 17:05 ==
LOC: ER 08:26
DX: E86.0 Dehydration (principal); I48.91 Unspecified atrial fibrillation; R00.0 Tachycardia, unspecified; I95.9 Hypotension, unspecified; T83.511A Infection and inflammatory reaction due to indwelling urethral catheter, initial encounter; Y73.1 Therapeutic (nonsurgical) and rehabilitative gastroenterology and urology devices associated with adverse incidents; G82.50 Quadriplegia, unspecified; R51.9 Headache, unspecified; E66.9 Obesity, unspecified; F32.9 Major depressive disorder, single episode, unspecified; I10 Essential (primary) hypertension; E11.9 Type 2 diabetes mellitus without complications; K21.9 Gastro-esophageal reflux disease without esophagitis; Z95.0 Presence of cardiac pacemaker; Z93.0 Tracheostomy status; Z79.01 Long term (current) use of anticoagulants; Z79.4 Long term (current) use of insulin; Z79.899 Other long term (current) drug therapy; Z68.35 Body mass index [BMI] 35.0-35.9, adult
CPT/HCPCS: 36415; 36600; 70450; 71045; 80048; 80076; 81001; 82550; 82553; 82803; 82805; 83605; 83690; 83735; 83880; 84484; 85025; 85610; 85730; 87040; 87086; 93005; 94002; 94760; J0696; J1650; J2270; J7030; J7050; J7060